=== PATIENT | male | born 1945 | race Caucasian/White ===

== ENCOUNTER 2018-10-22 10:40 | Outpatient (CLI) | payer MEDICARE | END 2018-10-22 23:59 | disposition home or self-care (01) | LOC: STAR 10:40 | PROVIDERS: ATTEND Orthopaedic Surgery | DX: Z01.818 Encounter for other preprocedural examination (principal); M17.11 Unilateral primary osteoarthritis, right knee | CPT/HCPCS: 36415; 80048; 83036; 85025; 85610; 85730; 87081; 87147; 87389; 93005 ==